=== PATIENT | male | born 1935 | race Caucasian/White ===

== ENCOUNTER 2022-06-18 05:29 | Emergency (ER) | payer MEDICARE, OTHER ==
[~2022-06-18] VITALS: Ht 182.9 cm; Wt 85.0 kg
--- NOTE | 2022-06-18 06:32 | NUR ---
RN UNABLE TO OBTAIN MEDICAL HX. NO FAMILY PRESENT AND NO FAMILY CONTACT DATA AT THIS TIME.
--- NOTE | 2022-06-18 07:31 | NUR ---
RN UNABLE TO DISCHARGE PT AT THIS TIME D/T AAOX1 BASELINE DEMENTIA AND NO FAMILY CONTACT. RN CHECKED WITH REGISTRATION AND THEY WERE UNABLE TO GET CONTACT #. L[employer] OPERATOR NOTIFIED.
--- NOTE | 2022-06-18 07:35 | NUR ---
REGISTRATION PROVIDED # FOUND ONLINE LINKED TO PT ADDRESS [phone]. RN ATTEMPTED TO CALL AND # HAS BEEN DISCONNECTED.
--- NOTE | 2022-06-18 07:46 | NUR ---
RN ATTEMPTED TO CALL [facility] [phone] AND [phone] AND LEFT VM AT BOTH #'S TO GET IN TOUCH WITH THE AMBULANCE CREW THAT BROUGHT THE PT. RN ALSO CALLED SHIV [phone] WITH [facility] AND HE COULD NOT PROVIDE INFO UNLESS RN COULD PROVIDE MEDIC UNIT #. SHIV RECOMMENDED WAITING FOR RETURN CALL FROM OTHER #'S. RN WILL CONTINUE TO TRY TO REACH PT FAMILY.
[2022-06-18 07:49] VITALS: BP 141/79
--- NOTE | 2022-06-18 07:52 | NUR ---
REGISTRATION CONTACTED [facility] AND THEY STATED THAT THEY DO NOT HAVE CONTACT PH# FOR FAMILY.
--- NOTE | 2022-06-18 08:00 | NUR ---
RN LEFT FOR SW [phone] TO CALL BACK FOR ASSISTANCE WITH LOCATING PT FAMILY. RN ALSO SPOKE WITH WILLIAN AYALA [phone] AND SHE WAS UNABLE TO HELP BUT WILL HAVE SW CALL ED TO HELP WHEN THEY ARRIVE.
--- NOTE | 2022-06-18 08:07 | NUR ---
PT NITA WINN WHO WORKS FOR [facility] IS AT THE BEDSIDE AND PROVIDED PH# FOR PT WHO HE LIVES WITH [employer] [phone] AND COULD NOT LEAVE A VM D/T VM WAS FULL. TATUM ALSO PROVIDED PT SON INFO AMMY [phone]. RN WAS ABLE TO LEAVE A VM FOR AMMY AND WILL REQ TATUM TRY TO CALL HIM TOO.
--- NOTE | 2022-06-18 08:17 | NUR ---
TATUM MOYA [phone] WAS ABLE TO REACH HER DAD AMMY AND AMMY WILL TRY TO REACH PT [facility] OR HE WILL COME TO HOSPITAL AND PROVIDE PT TRANSPORTATION HOME.
[2022-06-18] MEDS ORDERED: acetaminophen 325mg tablet PO ONE (08:50)
== END 2022-06-18 09:00 | disposition home or self-care (01) ==
LOC: ER 05:30
DX: M79.604 Pain in right leg (principal); F03.90 Unspecified dementia, unspecified severity, without behavioral disturbance, psychotic disturbance, mood disturbance, and anxiety; W19.XXXA Unspecified fall, initial encounter; Y93.89 Activity, other specified; Y92.89 Other specified places as the place of occurrence of the external cause; Y99.8 Other external cause status
CPT/HCPCS: 70450; 99284